=== PATIENT | male | born 1990 | race Hispanic/Latino ===

== ENCOUNTER 2017-06-13 11:36 | Emergency (ER) | payer OTHER ==
[2017-06-13 12:25] VITALS: BP 163/99; PULSE 106; RESP 20; TEMP 98.7; O2SAT 99
--- NOTE | 2017-06-13 13:05 | ED PDOC ---
Lower Extremity Pain/Injury Time Seen by Provider: 06/13/17 12:34 Chief Complaint (Nursing): Lower Extremity Problem/Injury Chief Complaint (Provider): Sent by tree thinner History Per: Patient History/Exam Limitations: no limitations Onset/Duration Of Symptoms: Days Additional Complaint(s): 26yo male, sent to ED by his tree thinner to rule out DVT. Patient had an ORIF of his right ankle 6 days ago and a couple days ago, he started having right calf cramping. Patient denies any swelling or issues with his wound site. He also denies any chest pain, shortness of breath or palpitations. Patient has no other medical complaints. Past Medical History Reviewed: Historical Data, Nursing Documentation, Vital Signs Vital Signs: Last Vital Signs Temp 98.7 F 06/13/17 12:23 Pulse 106 H 06/13/17 12:23 Resp 20 06/13/17 12:23 BP 163/99 H 06/13/17 12:23 Pulse Ox 99 06/13/17 12:23 - Medical History PMH: No Chronic Diseases - Surgical History Other surgeries: ORIF right ankle - Family History Family History: States: No Known Family Hx - Home Medications Home Medications: Ambulatory Orders Medication Instructions Recorded Cyclobenzaprine [Cyclobenzaprine 10 mg PO TID PRN #15 tab 06/13/17 HCl] - Allergies Allergies/Adverse Reactions: Allergies Allergy/AdvReac Type Severity Reaction Status Date / Time Sulfa (Sulfonamide Allergy VOMITING Verified 06/13/17 12:23 Antibiotics) Review of Systems ROS Statement: Except As Marked, All Systems Reviewed And Found Negative Cardiovascular: Negative for: Chest Pain, Palpitations Respiratory: Negative for: Shortness of Breath Musculoskeletal: Positive for: Other (right calf cramping ) Physical Exam - Reviewed Nursing Documentation Reviewed: Yes Vital Signs Reviewed: Yes - Physical Exam Appears: Positive for: Non-toxic, No Acute Distress Head Exam: Positive for: ATRAUMATIC, NORMAL INSPECTION, NORMOCEPHALIC Skin: Positive for: Normal Color Eye Exam: Positive for: Normal appearance Neck: Positive for: Supple Cardiovascular/Chest: Positive for: Regular Rate, Rhythm Respiratory: Positive for: Normal Breath Sounds. Negative for: Respiratory Distress Pulses-Dorsalis Pedis (R): 2+ Extremity: Positive for: Calf Tenderness (right), Capillary Refill (<2 sec), Other (No pain out of proportion, sensation intact, MS 5/5). Negative for: Pedal Edema, Swelling Neurologic/Psych: Positive for: Alert, Oriented - ECG O2 Sat by Pulse Oximetry: 99 (RA) Pulse Ox Interpretation: Normal Medical Decision Making Medical Decision Making: Impression: Right calf cramping, r/o DVT Plan: -- US Right lower extremity Time: 1400 US Right Lower extremity FINDINGS: COMMON FEMORAL VEIN: Unremarkable. SUPERFICIAL FEMORAL VEIN: Unremarkable. POPLITEAL VEIN: Unremarkable. POSTERIOR TIBIAL VEIN: Unremarkable. OTHER FINDINGS: None. IMPRESSION: No evidence of deep venous thrombosis in the right lower extremity. Findings discussed with patient and may need repeat ultrasound if sxs do not resolve. Scribe Attestation: Documented by Payton Pascal, acting as a scribe for Jil Buchanan MD Provider Scribe Attestation: All medical record entries made by the Scribe were at my direction and personally dictated by me. I have reviewed the chart and agree that the record accurately reflects my personal performance of the history, physical exam, medical decision making, and the department course for this patient. I have also personally directed, reviewed, and agree with the discharge instructions and disposition. Disposition - Clinical Impression Clinical Impression: Calf cramp - Patient ED Disposition Is Patient to be Admitted: No - Disposition Referrals: Frandy Pfeiffer MD [Staff Provider] - Disposition: Routine/Home Disposition Time: 14:30 Condition: STABLE Prescriptions: Cyclobenzaprine [Cyclobenzaprine HCl] 10 mg PO TID PRN #15 tab PRN Reason: Pain Instructions: Leg Cramps (ED) Forms: [employer] (Lithuanian)
--- NOTE | 2017-06-13 13:58 | US ---
PROCEDURE: Right lower extremity venous duplex Doppler. HISTORY: R calf pain COMPARISON: None available. TECHNIQUE: Common femoral, superficial femoral, popliteal and posterior tibial veins were evaluated. Flow was assessed with color Doppler, compressibility, assessment of phasic flow and augmentation response. FINDINGS: COMMON FEMORAL VEIN: Unremarkable. SUPERFICIAL FEMORAL VEIN: Unremarkable. POPLITEAL VEIN: Unremarkable. POSTERIOR TIBIAL VEIN: Unremarkable. OTHER FINDINGS: None. IMPRESSION: No evidence of deep venous thrombosis in the right lower extremity.
== END 2017-06-13 14:30 | disposition home or self-care (01) ==
LOC: H.ER 11:36
DX: R25.2 Cramp and spasm (principal)

== ENCOUNTER 2017-07-18 19:58 | Emergency (ER) | payer OTHER ==
[2017-07-18 20:08] VITALS: TEMP 98.1; O2SAT 100
--- NOTE | 2017-07-18 20:59 | ED PDOC ---
HPI: Chest Pain Time Seen by Provider: 07/18/17 20:33 Chief Complaint (Nursing): Chest Pain Chief Complaint (Provider): chest pain History Per: Patient History/Exam Limitations: no limitations Onset/Duration Of Symptoms: Days (3), Waxing/Waning Current Symptoms Are (Timing): Still Present Quality: Tightness Associated Symptoms: Dyspnea Additional History Per: Patient Additional Complaint(s): 26 y/o male presents with intermittent chest tightness x 3 days. Patient states tightness spreads across chest, which causes him to have palpitations when present. Patient notes history of acid reflux, states he has not been taking his medicine and notes "burning" in chest and throat. Patient states he had ORIF of right foot 06/07/17, currently on Augmentin for delayed wound healing. Denies fever, nausea/vomiting, cough/congestion, shortness of breath, abdominal pain, leg pain/swelling. Past Medical History Reviewed: Historical Data, Nursing Documentation, Vital Signs Vital Signs: Last Vital Signs Temp 98.1 F 07/18/17 20:04 Pulse 88 07/18/17 21:00 Resp 16 07/18/17 20:04 BP 122/63 07/18/17 20:04 Pulse Ox 100 07/18/17 21:03 - Medical History PMH: No Chronic Diseases - Surgical History Other surgeries: right foot sx - Family History Family History: States: Hypertension - Social History Current smoker - smoking cessation education provided: No Alcohol: Social Drugs: Denies - Home Medications Home Medications: Ambulatory Orders Medication Instructions Recorded Cyclobenzaprine [Cyclobenzaprine 10 mg PO TID PRN #15 tab 06/13/17 HCl] - Allergies Allergies/Adverse Reactions: Allergies Allergy/AdvReac Type Severity Reaction Status Date / Time Sulfa (Sulfonamide Allergy VOMITING Verified 07/18/17 20:04 Antibiotics) Review of Systems ROS Statement: Except As Marked, All Systems Reviewed And Found Negative Cardiovascular: Positive for: Chest Pain, Palpitations Physical Exam - Reviewed Nursing Documentation Reviewed: Yes Vital Signs Reviewed: Yes - Physical Exam Appears: Positive for: Well, Non-toxic, No Acute Distress Head Exam: Positive for: ATRAUMATIC, NORMAL INSPECTION, NORMOCEPHALIC Skin: Positive for: Normal Color Eye Exam: Positive for: Normal appearance ENT: Positive for: Normal ENT Inspection Cardiovascular/Chest: Positive for: Regular Rate, Rhythm Respiratory: Positive for: Normal Breath Sounds Pulses-Dorsalis Pedis (L): 2+ Pulses-Dorsalis Pedis (R): 2+ Pulses-Post. Tibialis (L): 2+ Pulses-Post. Tibialis (R): 2+ Gastrointestinal/Abdominal: Positive for: Normal Exam Back: Positive for: Normal Inspection Extremity: Positive for: Normal ROM, Other (healing surgical incision sites noted medial and lateral right malleolus) - Laboratory Results Result Diagrams: 07/18/17 21:12 07/18/17 21:12 - ECG ECG: Positive for: Viewed By Me (reviewed by ED attending) ECG Rhythm: Positive for: Sinus Tachycardia O2 Sat by Pulse Oximetry: 100 - Radiology X-Ray: Viewed By Me X-Ray Interpretation: No Acute Disease - Progress ED Course And Treament: labs, chest xray, ekg On re-eval, patient resting comfortably; states no pain currently. Patient educated on findings, discharged with instructions to follow up PMD 2-3 days. Advised to continue GERD meds as directed. Return precautions given. Disposition - Clinical Impression Clinical Impression: Atypical chest pain, Palpitations - Patient ED Disposition Is Patient to be Admitted: No Counseled Patient/Family Regarding: Studies Performed, Diagnosis, Need For Followup - Disposition Disposition: Routine/Home Disposition Time: 22:55 Condition: IMPROVED Instructions: Palpitations (DC), Chest Pain That Is Not Caused by the Heart (DC ) Forms: [employer] (Thai)
[2017-07-18 21:23] LABS: BASO # 0.1 K/uL (0.0-0.2); BASO % 0.6 % (0.0-2.0); EOS # 0.2 K/uL (0.0-0.7); EOS % 2.6 % (0.0-4.0); HEMOGLOBIN 14.5 g/dL (12.0-18.0); LYMPH # 2.1 K/uL (1.0-4.3); LYMPH % 24.7 % (20.0-40.0); MEAN CELL VOLUME 80.4 fl (80.0-94.0); MEAN CORPUSCULAR HEMOGLOBIN 27.1 pg (27.0-31.0); MEAN CORPUSCULAR HGB CONC 33.7 g/dL (33.0-37.0); MEAN PLATELET VOLUME 8.8 fl (7.2-11.7); MONO # 0.6 K/uL (0.0-0.8); MONO % 7.5 % (0.0-10.0); NEUT # 5.6 K/uL (1.8-7.0); NEUT % 64.6 % (50.0-75.0); NRBC % 0.1 % (0.0-0.0); RBC 5.36 Mil/uL (4.40-5.90); RED CELL DISTRIBUTION WIDTH 13.6 % (11.5-14.5); WHITE BLOOD COUNT 8.6 K/uL (4.8-10.8)
[2017-07-18 21:35] LABS: ALB/GLOB RATIO 1.2 (1.0-2.1); ALBUMIN 4.7 g/dL (3.5-5.0); ALT/SGPT 115 U/L (21-72); AST/SGOT 53 U/L (17-59); BLOOD UREA NITROGEN 15 mg/dl (9-20); CALCIUM 9.9 mg/dL (8.4-10.2); GFR AFRICAN-AMERICAN > 60; GFR NON-AFRICAN AMERICAN > 60
[2017-07-18 22:54] VITALS: BP 124/64; PULSE 96; RESP 18
== END 2017-07-18 23:10 | disposition home or self-care (01) ==
LOC: H.ER 19:58
DX: R07.89 Other chest pain (principal); R00.2 Palpitations